=== PATIENT | female | born 1980 | race Caucasian/White ===

== ENCOUNTER 2021-12-09 23:02 | Emergency (ER) | payer BC ==
[2021-12-09 23:44] LABS: RED BLOOD COUNT 5.07 M/UL (4.00-5.10); WHITE BLOOD COUNT 9.9 K/UL (4.5-11.0)
[2021-12-10 00:10] LABS: BUN/CREATININE RATIO 24 (0-10)
== END 2021-12-10 01:26 | disposition home or self-care (01) ==
LOC: ER1 23:02
PROVIDERS: Student in an Organized Health Care Education/Training Program
DX: R00.0 Tachycardia, unspecified (principal); R00.2 Palpitations
CPT/HCPCS: 71045; 80053; 82550; 82553; 84439; 84443; 84484; 85025; 85379; 93005; 99285; J7030